=== PATIENT | female | born 1950 ===

== ENCOUNTER 2018-07-01 20:39 | Emergency (ER) | payer MEDICARE, BC ==
[2018-07-01] MEDS ORDERED: Albuterol 2.5 MG/3 ML NEB.SOL* (0.083%) INH ONE (21:23)
[2018-07-01] MEDS ORDERED: Ipratropium 0.5MG/2.5ML NEB* 0.5 MG/2.5 ML NEB.SOLN INH ONE (21:23)
[2018-07-01] MEDS ORDERED: predniSONE TAB* 20 MG PO ONE (21:23)
--- NOTE | 2018-07-01 21:24 | UC ---
Respiratory Complaint HPI - HPI Summary HPI Summary: The patient is a 67-year-old female with a one-week history of progressively worsening bronchospasm. She has a history of asthma. Recently flew up here from [place]. She has had to use her rescue inhaler daily since arriving here. He has had no fever or chills. She has had a nonproductive cough. She is starting to get less benefit from her rescue inhaler. - History of Current Complaint Chief Complaint: UCRespiratory Stated Complaint: ASTHMA Time Seen by Provider: 07/01/18 21:18 Hx Obtained From: Patient Onset/Duration: Gradual Onset, Lasting Days Timing: Constant Severity Initially: Mild Severity Currently: Moderate Pain Intensity: 0 Pain Scale Used: 0-10 Numeric Character: Cough: Nonproductive Aggravating Factors: Exertion, Deep Breaths, Recumbent Position Alleviating Factors: Bronchodilator Associated Signs And Symptoms: Positive: Wheezing Related History: Similar Episode/Dx as: - bronchitis - Allergies/Home Medications Allergies/Adverse Reactions: Allergies Allergy/AdvReac Type Severity Reaction Status Date / Time Penicillins Allergy Unknown Verified 07/01/18 20:53 Reaction Details Sulfa (Sulfonamide Allergy Unknown Verified 07/01/18 20:53 Antibiotics) Reaction Details Home Medications: Home Medications Fluticasone HFA 110 mcg(NF) [Flovent HFA 110 mcg(NF)] 1 puff INH BID 07/01/18 [ History Confirmed 07/01/18] Gabapentin 300 mg PO TID 07/01/18 [History Confirmed 07/01/18] Hydrochlorothiazide TAB* [Hydrodiuril TAB*] 25 mg PO DAILY 07/01/18 [History Confirmed 07/01/18] Insulin Aspart Prot/Insuln Asp [Novolog Mix 70-30 Flexpen Syrn] 100 unit SQ BID 07/01/18 [History Confirmed 07/01/18] Montelukast Sodium TAB* [Singulair TAB*] 10 mg PO DAILY 07/01/18 [History Confirmed 07/01/18] Mycophenolate Mofetil 500 mg PO 07/01/18 [History] Ursodiol [Actigall] 300 mg PO TID 07/01/18 [History Confirmed 07/01/18] dilTIAZem HCl [Cartia Xt] 120 mg PO DAILY 07/01/18 [History Confirmed 07/01/18] PMH/Surg Hx/FS Hx/Imm Hx Endocrine History: Diabetes, Dyslipidemia Cardiovascular History: Hypertension Respiratory History: Asthma, Bronchitis, Pneumonia - Surgical History Surgical History: Yes Surgery Procedure, Year, and Place: rotator cuff surgery - Family History Known Family History: Positive: Hypertension - Social History Alcohol Use: Rare Substance Use Type: None Smoking Status (MU): Never Smoked Tobacco Review of Systems Constitutional: Negative Skin: Negative Eyes: Negative ENT: Negative Respiratory: Cough Cardiovascular: Negative Gastrointestinal: Negative Genitourinary: Negative Motor: Negative Neurovascular: Negative Musculoskeletal: Negative Neurological: Negative Psychological: Negative All Other Systems Reviewed And Are Negative: Yes Physical Exam Triage Information Reviewed: Yes Appearance: Well-Appearing, No Pain Distress, Well-Nourished Vital Signs: Initial Vital Signs Temp 97.6 F 07/01/18 20:46 Pulse 104 07/01/18 20:46 Resp 18 07/01/18 20:46 BP 149/86 07/01/18 20:46 Pulse Ox 97 07/01/18 20:46 Vital Signs Reviewed: Yes Eyes: Positive: Conjunctiva Clear ENT: Positive: Hearing grossly normal. Negative: Nasal congestion, Nasal drainage, Trismus, Muffled voice, Hoarse voice Neck: Positive: Supple, Nontender, No Lymphadenopathy Respiratory: Positive: No respiratory distress, No accessory muscle use, Wheezing Cardiovascular: Positive: RRR, No Murmur Musculoskeletal: Positive: Strength Intact, ROM Intact, No Edema Neurological: Positive: Alert Psychological Exam: Normal Skin Exam: Normal UC Diagnostic Evaluation - Laboratory O2 Sat by Pulse Oximetry: 97 - normal/not hypoxic Respiratory Course/Dx - Differential Dx/Diagnosis Provider Diagnoses: acute exacerbation of asthma Discharge - Sign-Out/Discharge Documenting (check all that apply): Patient Departure All imaging exams completed and their final reports reviewed: No Studies - Discharge Plan Condition: Stable Disposition: HOME Prescriptions: predniSONE [Deltasone 20 MG TAB] 40 mg PO DAILY #8 tab Patient Education Materials: Bronchospasm (ED) Referrals: No Primary Care Phys,NOPCP [Primary Care Provider] - Additional Instructions: recheck for new or worsening symptoms recheck in 4-5 days if not completely better - Billing Disposition and Condition Condition: STABLE Disposition: Home
== END 2018-07-01 21:55 | disposition home or self-care (01) ==
LOC: UCEAST 20:39
DX: J45.901 Unspecified asthma with (acute) exacerbation (principal); E11.9 Type 2 diabetes mellitus without complications; Z79.4 Long term (current) use of insulin; E78.5 Hyperlipidemia, unspecified; I10 Essential (primary) hypertension; Z88.0 Allergy status to penicillin; Z88.2 Allergy status to sulfonamides
CPT/HCPCS: 99202; G0463; J7512